=== PATIENT | male | born 1995 | race Caucasian/White ===

== ENCOUNTER 2018-03-17 03:54 | Emergency (ER) | payer OTHER ==
[2018-03-17] MEDS ORDERED: diphenhydrAMINE HCL 25 MG CAPSULE (FP) PO ONE (04:22)
[2018-03-17] MEDS ORDERED: RANITIDINE HCL 150 MG TABLET (FP) PO ONE (04:22)
--- NOTE | 2018-03-17 04:23 | PDOC ---
Attending Attestation - Resident Resident Name: Wilber Lang - ED Attending Attestation I have performed the following: I have examined & evaluated the patient, The case was reviewed & discussed with the resident, I agree w/resident's findings & plan, Exceptions are as noted - Medical Decision Making 03/17/18 04:22 22yoM presnets w/ urticaria. No known triggers, no hx of allergies, no hx of anaphylactic reaction. No airway involvement at time of ED presentation. - Benadryl, H2 enoc - obs for DC <Marta Graham - Last Filed: 03/17/18 04:22> - HPI HPI: 03/17/18 06:51 Patient is a 22 year old male with no significant past medical history who presents to the ED with complaints of diffuse body rash that began just prior to ED arrival. Patient reports waking this morning at 3 am with a diffuse body rash with associated itching . He reports taking nothing at home for the rash, but stated he wanted to come into the ED for further evaluation in case it became worse. Denies chest pain, Sob. Denies nausea, vomiting. Denies contact with sick individuals, out of state travelling. Denies change in soap, change in food. Denies any other symptoms. Allergies: None Social history: Lives with parents. No smoking. No alcohol. No illicit drugs. Surgical history: None PMD: Dr. Xie - Physicial Exam PE: 03/17/18 06:51 General Physical Exam: NAD EOMI, OSMEL MMM, OP WNL NCAT, no midline cervical tenderness RRR, nl s1/s2, no m/r/g CTABL, no w/r/r Soft, NTND No edema, WWP, Diffuse urticarial rash. Neuro grossly intact, gait WNL, moving all 4 A&O x 3, mood/affect WNL. <Александр Ibrahim - Last Filed: 03/17/18 06:51>
--- NOTE | 2018-03-17 04:50 | PDOC ---
History of Present Illness - General Stated Complaint: RASH Time Seen by Provider: 03/17/18 04:15 History Source: Patient Exam Limitations: No Limitations - History of Present Illness Initial Comments: 03/17/18 04:26 Patient is a 22M with no significant medical history here today complaining of an rash that he woke up at 3am this morning. Denies shortness of breath, throat swelling and difficultly breathing. Denies fevers, chills, nausea, vomiting. Denies eating any new foods. Denies taking any medications. Patient states that he has not had something like this happen before. Past History - Past Medical History Allergies/Adverse Reactions: Allergies Allergy/AdvReac Type Severity Reaction Status Date / Time No Known Allergies Allergy Verified 03/17/18 04:25 Home Medications: Ambulatory Orders NK [No Known Home Medication] 03/17/18 Review of Systems - Review of Systems Comments:: 03/17/18 04:50 GENERAL/CONSTITUTIONAL: No fever or chills. No weakness. HEAD, EYES, EARS, NOSE AND THROAT: No change in vision. No sore throat. CARDIOVASCULAR: No chest pain or shortness of breath RESPIRATORY: No cough, wheezing, or hemoptysis. GASTROINTESTINAL: No nausea, vomiting, diarrhea or constipation. GENITOURINARY: No dysuria, frequency, or change in urination. MUSCULOSKELETAL: No joint or muscle swelling or pain. No neck or back pain. SKIN: No rash NEUROLOGIC: No headache, vertigo, loss of consciousness, or change in strength/ sensation. ENDOCRINE: No increased thirst. No abnormal weight change HEMATOLOGIC/LYMPHATIC: No anemia, easy bleeding, or history of blood clots. ALLERGIC/IMMUNOLOGIC: +rash *Physical Exam - Physical Exam Comments: 03/17/18 04:50 GENERAL: Awake, alert, and fully oriented, in no acute distress HEAD: No signs of trauma, normocephalic, atraumatic EYES: PERRLA, EOMI, sclera anicteric, conjunctiva clear ENT: Auricles normal inspection, hearing grossly normal, nares patent, oropharynx clear without exudates. Moist mucosa NECK: Normal ROM, supple, no lymphadenopathy, JVD, or masses LUNGS: No distress, speaks full sentences, clear to auscultation bilaterally HEART: Regular rate and rhythm, normal S1 and S2, no murmurs, rubs or gallops, peripheral pulses normal and equal bilaterally. ABDOMEN: Soft, nontender, normoactive bowel sounds. No guarding, no rebound. No masses EXTREMITIES: Normal inspection, Normal range of motion, no edema. No clubbing or cyanosis. NEUROLOGICAL: Cranial nerves II through XII grossly intact. Normal speech, normal gait, no focal sensorimotor deficits SKIN: Diffuse urticarial rash Medical Decision Making - Medical Decision Making 03/17/18 04:51 Patient is 22M with no significant medical history here today with rash. Rash does not involve face, no airway issues, no wheezing on exam. No clear inciting event. Will give ranitidine, bendaryl and observe. Likely discharge. 03/17/18 05:30 Patient's uriticaria has resolved. Will discharge with benadryl and zantac. *DC/Admit/Observation/Transfer Diagnosis at time of Disposition: Allergic reaction - Discharge Dispostion Disposition: HOME Condition at time of disposition: Good Decision to Admit order: No - Referrals Referrals: Randal Xie MD [Primary Care Provider] - - Patient Instructions Printed Discharge Instructions: DI for General Allergic Reactions Additional Instructions: Please return if you have any new, worsening or concerning symptoms. Please follow up with your primary care physician, they may decide you need allergy testing. - Post Discharge Activity
[2018-03-17 05:10] VITALS: TEMP 98
[2018-03-17 05:42] VITALS: BP 124/78; PULSE 71
== END 2018-03-17 05:40 | disposition home or self-care (01) ==
LOC: JER 03:54
DX: T78.49XA Other allergy, initial encounter (principal); L50.9 Urticaria, unspecified
CPT/HCPCS: 99281-25

== ENCOUNTER 2018-08-03 11:10 | Day surgery (SDC) | payer OTHER ==
[2018-08-02 16:41] VITALS: BMI 19.3
--- NOTE | 2018-08-03 09:41 | HP ---
History & Physical Update - History History: No Change - Physical Physical: No Change - Assessment Assessment: No Change - Plan Plan: No Change (Mass on left side of neck for excision. Procedure explained.)
[2018-08-03] MEDS ORDERED: ceFAZolin SODIUM 1 GM VIAL IVPB ONE (12:22)
[2018-08-03] MEDS ORDERED: LIDOCAINE 1%/EPI 1:100000 (20 ML MULTI DOSE VIAL) IJ ONE ×2 (12:28)
--- NOTE | 2018-08-03 12:54 | OP ---
Operative Note - Note: Operative Date: 08/03/18 Pre-Operative Diagnosis: Mass in left neck. Operation: Excision of mass in left neck, with layered closure. Findings: 2cm. firm mass under the skin in left neck. Surgeon: Chanel Turner Anesthesia: Local, MAC Specimens Removed: Mass left neck. Estimated Blood Loss (mls): 2 Operative Report Dictated: Yes
[2018-08-03] MEDS ORDERED: PROMETHAZINE HCL 25 MG/1 ML VIAL IVPB PRN (12:59)
[2018-08-03] MEDS ORDERED: ONDANSETRON 4 MG/2 ML VIAL IVPUSH PRN (12:59)
[2018-08-03] MEDS ORDERED: oxyCODONE HCL 5 MG TABLET PO PRN (12:59)
[2018-08-03] MEDS ORDERED: LACTATED RINGERS SOLUTION 1,000 ML IV SCH (13:00)
[2018-08-03 14:28] VITALS: TEMP 97.6
[2018-08-03 15:22] VITALS: BP 113/54; PULSE 67
--- NOTE | 2018-08-03 15:22 | OP ---
DATE OF OPERATION: 08/03/2018 PREOPERATIVE DIAGNOSIS: A 2-cm mass on the left side of the mass below the angle of the mandible in front of the left sternocleidomastoid muscle. POSTOPERATIVE DIAGNOSIS: A 2-cm mass on the left side of the mass below the angle of the mandible in front of the left sternocleidomastoid muscle. OPERATIVE PROCEDURE: Excision of mass in the left neck deep to the deep fascia with layered closure (simple layered repair of 4-cm wound deep to the deep fascia). SURGEON: Annmarie Turner MD ANESTHESIA: Local with monitored intravenous sedation. OPERATIVE DESCRIPTION: This 23-year-old man had a small mass on the left side of the neck, which is firm, mobile, deep to the skin. It was along the anterior border of the sternocleidomastoid muscle 2-3 fingerbreadth below the angle of the mandible. The patient was brought in for excision of the lesion. It was firm to feel. The site was marked and identified. The patient was brought to the operating room and placed with the neck in extension. He was given intravenous sedation. The left side of the neck was painted and draped. The site was marked preoperatively. Then 1% lidocaine with epinephrine was injected around the lesion. An elliptical incision was made 4 cm in length overlying the incision. The incision on either side was deepened through the skin, platysma muscle, and the deep fascia on either side. The skin was raised on either side away from the lesion. The lesion was then excised along with the skin and sent to Pathology. This was firm lesion. The wound was irrigated. Hemostasis was achieved. The wound was then closed in layers approximating the deep fascia with buried interrupted 0 Vicryl sutures. The platysma was then approximated with buried interrupted 4-0 Monocryl sutures. The skin was approximated with continuous 4-0 Monocryl sutures in a running subcuticular fashion. Dermabond was applied to the skin edges. The patient tolerated the procedure well and was sent to the recovery room in satisfactory and stable condition. Adalid [id number]
--- NOTE | 2018-08-08 18:24 | PATH ---
Surgical Pathology Report Patient Name: MYLES MORALES [facility]. Rec. #: [id number] /Age/Gender: 1995 (Age: 23) / M Account: [id number] Location: [facility] SURGICAL Taken: 08/03/2018 Received: 08/03/2018 Reported: 08/08/2018 Physicians: Annmarie Turner M.D. Specimen(s) Received LEFT NECK MASS Clinical History Neck mass and lump Final Diagnosis NECK MASS, LEFT, EXCISION: SKIN AND UNDERLYING SUBCUTANEOUS TISSUE WITH ACUTE AND CHRONIC GRANULOMATOUS INFLAMMATION. SPECIAL STAINS FOR FUNGUS (PAS) AND ACID-FAST BACILLI (AFB) ARE NEGATIVE. Comment: Granulomatous inflammation/lesion is present within the deep dermis. Findings are nonspecific with a broad differential diagnosis which includes infection. Suggest clinical and microbiology studies correlation. Electronically Signed Megan Wayne M.D. Gross Description Received in formalin labeled "left neck mass," is a 1.2 x 0.3 cm dupont, elliptical, unoriented portion of skin excised to a depth of 0.5 cm. The epidermal surface is unremarkable. Sectioning reveals unremarkable soft tissue. No definitive lesion is identified grossly. The specimen is entirely submitted in 2 cassettes as follows: 1-undesignated tips; 2-central portion of specimen. /08/03/2018
== END 2018-08-03 15:00 | disposition home or self-care (01) ==
LOC: JASU-SURG 11:10
PROVIDERS: ATTEND Specialist
PROC: 0JB50ZZ Excision of Left Neck Subcutaneous Tissue and Fascia, Open Approach (ICD-10-PCS; principal; 2018-08-03 11:30)
DX: L92.8 Other granulomatous disorders of the skin and subcutaneous tissue (principal)
CPT/HCPCS: 88305-TC; 88312-TC; 94760

== ENCOUNTER 2024-06-12 12:01 | Emergency (ER) | payer OTHER ==
[2024-06-12 12:17] VITALS: BP 115/78; PULSE 73; RESP 18; TEMP 98.8; BMI 23.3
== END 2024-06-12 14:10 | disposition home or self-care (01) ==
LOC: JER 12:01 → JERFT 12:01
DX: S92.001A Unspecified fracture of right calcaneus, initial encounter for closed fracture (principal); W01.0XXA Fall on same level from slipping, tripping and stumbling without subsequent striking against object, initial encounter; Y93.02 Activity, running
CPT/HCPCS: 73610-TC-RT-FY; 73630-TC-RT-FY; 99283-25